=== PATIENT | female | born 1950 | race Caucasian/White ===

== ENCOUNTER → 2016-10-08 | Day surgery (SDC) | payer OTHER ==
[~2016-10-08] MED LIST: LEVOTHYROXINE150 MC1 PO; MULTI VITAMIN1 EACH PO; TRAMADOL HCL50 M2 PO
--- NOTE | ~2016-10-08 | OR ---
Unit #: [id number] #: [id number] Patient: TARA LACKEY [id number] [address] [address] [id number] O MR#: [id number] NAME: TARA LACKEY ROOM: Date of Procedure: 10/08/2016 Admission Date: 10/08/2016 Surgeon: Alex Melissa M.D. : 1950 Attending Physician: Alex Melissa M.D. Primary Care Physician: Karissa Bernardo M.D. OPERATIVE REPORT PREOPERATIVE DIAGNOSIS Intermittent bright red blood per rectum. POSTOPERATIVE DIAGNOSIS Intermittent bright red blood per rectum. PROCEDURE PERFORMED Colonoscopy to cecum. ANESTHESIA Monitored anesthesia care. FINDINGS The patient was found to have scattered sigmoid diverticula and moderate internal hemorrhoids. SPECIMENS None. COMPLICATIONS None apparent. CONDITION The patient tolerated the procedure well. INDICATIONS FOR PROCEDURE The patient is a 66-year-old white female, who has had intermittent bright red blood on the toilet paper. She presents at this time for evaluation by colonoscopy. DESCRIPTION OF PROCEDURE After obtaining informed consent, the patient was brought to the endoscopy suite and after adequate monitored anesthesia care, had the colonoscope placed through the anus and slowly advanced to the level of the cecum without difficulty with lumen always in view. The cecum was normal as was the ileocecal valve. The ascending colon was normal as was the hepatic flexure, transverse colon, splenic flexure, and descending colon. The sigmoid colon had some scattered diverticula seen. The rectosigmoid and rectum were all within normal limits. On retroflexing in the rectum to the anorectal junction, the patient was found to have some moderate internal hemorrhoids. The scope was removed without difficulty. The patient tolerated the procedure well and went from the endoscopy suite to Unit #: [id number] #: [id number] Patient: TARA LACKEY the recovery area in stable condition. RECOMMENDATIONS High-fiber diet, lots of liquids, tucks or wipes p.r.n. Diverticular sheet given. Dictated by... Danni Nguyen/hope TD: 10/08/2016 18:59 JOB #: [id number] CC: [facility] OPERATIVE REPORT Page 1 of 1 X Alex Melissa MD PROCEDURE OPERATIVE NOTE
== END | disposition home or self-care (01) ==
LOC: COPS 11:16
PROVIDERS: Surgery
PROC: 0DJD8ZZ Inspection of Lower Intestinal Tract, Via Natural or Artificial Opening Endoscopic (ICD-10-PCS; principal; 2016-10-08 13:00)
DX: K62.5 Hemorrhage of anus and rectum (principal); K57.30 Diverticulosis of large intestine without perforation or abscess without bleeding; K64.8 Other hemorrhoids; E03.9 Hypothyroidism, unspecified; G89.29 Other chronic pain; L30.9 Dermatitis, unspecified; J30.9 Allergic rhinitis, unspecified; M41.9 Scoliosis, unspecified; L23.7 Allergic contact dermatitis due to plants, except food; Z78.0 Asymptomatic menopausal state; Z91.040 Latex allergy status; Z88.2 Allergy status to sulfonamides; Z90.710 Acquired absence of both cervix and uterus; Z80.3 Family history of malignant neoplasm of breast; Z82.49 Family history of ischemic heart disease and other diseases of the circulatory system; Z82.5 Family history of asthma and other chronic lower respiratory diseases; Z83.42 Family history of familial hypercholesterolemia